=== PATIENT | male | born 1970 ===

== ENCOUNTER 2020-04-23 12:39 | Emergency (ER) | payer SELFPAY ==
[2020-04-23] MEDS ORDERED: KETOROLAC 60 MG/2 ML INJ IM ONE (12:52)
--- NOTE | 2020-04-23 12:53 | Event Note ---
ED Screening Note ED Screening Note: PAIN L HIP SLUNG BAG OVER SHOULDER AND FELT POP AMBULATORY W LIMP This initial assessment/diagnostic orders/clinical plan/treatment(s) is/are subject to change based on patients health status, clinical progression and re- assessment by fellow clinical providers in the ED. Further treatment and workup at subsequent clinical providers discretion. Patient/guardian urged not to elope from the ED as their condition may be serious if not clinically assessed and managed. Initial orders include: XRAY
[2020-04-23 12:55] VITALS: BP 136/85
--- NOTE | 2020-04-23 14:05 | XRay Report ---
XR hips BILAT 2V w/pelvis INDICATION / CLINICAL INFORMATION: PAIN. COMPARISON: None available. FINDINGS: No acute fracture. Normal alignment. Joint spaces are preserved. No destructive osseous lesion or s uspicious periosteal reaction. Impression: 1.No significant osseous abnormality. Signer Name: Fermin Diaz MD Signed: 04/23/2020 2:00 PM Workstation Name: [id number]
--- NOTE | 2020-04-23 14:10 | XRay Report ---
XR spine lumbosacral 2-3V HISTORY: PAIN COMPARISON: None. TECHNIQUE: 3 view(s) of the lumbar spine obtained. FINDINGS: Vertebrae: Normal alignment. Vertebral body heights are preserved. Spondylosis:Disc space heights are preserved. IMPRESSION: 1. No significant abnormality of the lumbar spine. Signer Name: Fermin Diaz MD Signed: 04/23/2020 2:05 PM Workstation Name: [id number]
--- NOTE | 2020-04-23 14:13 | Emergency Department Report ---
ED Lower Extremity HPI - General Chief Complaint: Extremity Injury, Lower Stated Complaint: LT HIP PAIN Time Seen by Provider: 04/23/20 12:51 Source: patient Mode of arrival: Ambulatory Limitations: No Limitations - History of Present Illness Initial Comments: Patient is a 50-year-old -[place] male who comes to the ER today complaining of left hip pain. He states that it started yesterday after he twisted back containing $60,000 over his left shoulder. He states that he felt a pop in his hip and has had pain since. He denies any pain in his back. He is ambulatory to the ER. He denies any other injury. The pain is a constant ache. Its worse with movement. He has taken nothing prior to arrival for the pain. He has not seen his primary care doctor. MD Complaint: hip injury -: Sudden, days(s) Injury: Hip: Left Type of Injury: other Place: work Severity: moderate Improves With: nothing Worsens With: movement Associated Symptoms: snap/pop sensation - Related Data Previous Rx's Medication Instructions Recorded Last Taken Type Cyclobenzaprine [Flexeril] 10 mg PO TID PRN #10 tablet 04/23/20 Unknown Rx Ibuprofen [Motrin] 800 mg PO Q8HR PRN #30 tablet 04/23/20 Unknown Rx Allergies Allergy/AdvReac Type Severity Reaction Status Date / Time No Known Allergies Allergy Unverified 04/23/20 12:52 ED Review of Systems ROS: Stated complaint: LT HIP PAIN Other details as noted in HPI Comment: All other systems reviewed and negative ED Past Medical Hx - Past Medical History Previous Medical History?: No - Surgical History Past Surgical History?: No - Family History Family history: no significant - Social History Smoking Status: Never Smoker Substance Use Type: None - Medications Home Medications: Home Medications Medication Instructions Recorded Confirmed Last Taken Type Cyclobenzaprine [Flexeril] 10 mg PO TID PRN #10 tablet 04/23/20 Unknown Rx Ibuprofen [Motrin] 800 mg PO Q8HR PRN #30 tablet 04/23/20 Unknown Rx ED Physical Exam - General Limitations: No Limitations General appearance: alert, in no apparent distress - Head Head exam: Present: atraumatic, normocephalic - Eye Eye exam: Present: normal appearance - ENT ENT exam: Present: mucous membranes moist - Neck Neck exam: Present: normal inspection - Respiratory Respiratory exam: Present: normal lung sounds bilaterally. Absent: respiratory distress - Cardiovascular Cardiovascular Exam: Present: regular rate, normal rhythm. Absent: systolic murmur, diastolic murmur, rubs, gallop - GI/Abdominal GI/Abdominal exam: Present: soft, normal bowel sounds - Rectal Rectal exam: Present: deferred - Extremities Exam Extremities exam: Present: normal inspection - Back Exam Back exam: Present: normal inspection - Neurological Exam Neurological exam: Present: alert, oriented X3 - Psychiatric Psychiatric exam: Present: normal affect, normal mood - Skin Skin exam: Present: warm, dry, intact, normal color. Absent: rash ED Course Vital Signs 04/23/20 04/23/20 12:53 13:09 Temperature 98.2 F Pulse Rate 76 Respiratory 18 18 Rate Blood Pressure 136/85 O2 Sat by Pulse 99 Oximetry ED Lower Extremity MDM - Radiology Data Radiology results: report reviewed, image reviewed NAP - Medical Decision Making X-ray negative for acute injury. Patient medicated for pain. Patient being discharged home with orthopedic follow-up. Patient verbalizes understanding of discharge plan of care. Vital Signs 04/23/20 04/23/20 12:53 13:09 Temperature 98.2 F Pulse Rate 76 Respiratory 18 18 Rate Blood Pressure 136/85 O2 Sat by Pulse 99 Oximetry - Differential Diagnosis RO FX/DISLOCATION/HERNIATION Critical care attestation.: If time is entered above; I have spent that time in minutes in the direct care of this critically ill patient, excluding procedure time. ED Disposition Clinical Impression: Hip pain Disposition: DC-01 TO HOME OR SELFCARE Is pt being admited?: No Does the pt Need Aspirin: No Condition: Stable Instructions: Hip Pain Additional Instructions: MED ORDERED TODAY FOLLOW UP WITH ORTHO IF PAIN PERSISTS REFERRAL BELOW Prescriptions: Cyclobenzaprine [Flexeril] 10 mg PO TID PRN #10 tablet PRN Reason: Muscle Spasm Ibuprofen [Motrin] 800 mg PO Q8HR PRN #30 tablet PRN Reason: Pain, Moderate (4-6) Referrals: TAYLER ELAM MD [Staff Physician] - 3-5 Days Forms: Work/School Release Form(ED) Time of Disposition: 14:12
== END 2020-04-23 15:02 | disposition home or self-care (01) ==
LOC: ED 12:39
DX: M25.552 Pain in left hip (principal); Z79.899 Other long term (current) drug therapy
CPT/HCPCS: 72100; 73521; 96372; 99283; J1885